=== PATIENT | female | born 2005 | race African-American/Black ===

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

== ENCOUNTER 2023-12-22 09:57 | Emergency (ER) | payer OTHER ==
[~2023-12-22 09:57] MED LIST: ALBUAER3 IN
== END 2023-12-22 10:52 | disposition left against medical advice (07) ==
LOC: ER 09:57
DX: R10.9 Unspecified abdominal pain (principal); Z53.21 Procedure and treatment not carried out due to patient leaving prior to being seen by health care provider

== ENCOUNTER 2024-02-29 15:57 | Emergency (ER) | payer OTHER | END 2024-02-29 16:42 | disposition left against medical advice (07) | LOC: ER 15:57 | DX: R31.9 Hematuria, unspecified (principal); Z53.21 Procedure and treatment not carried out due to patient leaving prior to being seen by health care provider ==

== ENCOUNTER 2024-03-07 10:20 | Emergency (ER) | payer OTHER ==
[~2024-03-07] VITALS: Ht 175.3 cm; Wt 55.1 kg
[2024-03-07 11:42] LABS: Urine Bacteria FEW /hpf (None Seen); Urine Blood Negative /uL (Negative); Urine Clarity Turbid (Clear); Urine Color Yellow (Yellow); Urine Mucus FEW (None Seen); Urine Protein, UAD TRACE (Negative); Urine Specific Gravity 1.027 (1.001-1.035); Urine Urobilinogen Normal (Negative); Urine WBC 58 /hpf (0 - 5); Urine pH 6.5 (5.0-9.0)
--- NOTE | 2024-03-07 11:45 | ED.PDOC ---
General HPI Comments A 18 year old female presents to the ED with a chief complaint of dysuria onset 2 weeks. Patient states she has been experiencing painful urination with a burning sensation as well as increased frequency and headache for the past 2 days. She has a past medical history of anemia and denies chest pain, shortness of breath, cough, congestion, dizziness, nausea, vomiting, diarrhea, fever. No other symptoms or modifying factors present at this time. Chief Complaint: Urinary Time Seen by MD: 11:09 Primary Care Provider: [employer] Reviewed notes: Medications, Allergies Allergies: Coded Allergies: NO KNOWN ALLERGIES (Unverified , 08/28/22) Home Meds Active Scripts Albuterol Sulfate (VENTOLIN MDI) 90 Mcg Ih, 90 MCG IN Q6HP PRN for 7 Days, #1 MCG Prov:LANEY SESAY MD 06/21/23 Albuterol Sulfate (VENTOLIN MDI) 90 Mcg Ih, 90 MCG IN Q6HP PRN for 10 Days, #1 MCG Prov:LANEY SESAY MD 06/21/23 Information Source: Patient Mode of Arrival: Ambulatory Severity: Moderate Timing: Weeks Duration: Intermittent Prehospital treatment: None Symptoms: Dysuria, Frequency History of: None Modifying factors: None associated signs and symptoms: Dysuria, Frequency, None (headache) Past Medical History PAST MEDICAL HISTORY: Anemia Surgical History: Denies all surgeries RESIDENCY DIRECTOR History: Denies all RESIDENCY DIRECTOR Hx Family History Family History: Reviewed,noncontributory to illness Social History Smoker: Non-Smoker Alcohol: Denies ETOH Use Drugs: Denies Drug Use Lives In: Home Constitutional: denies: chills, diaphoresis, fatigue, fever, malaise, sweats, weakness, others EENTM: denies: blurred vision, double vision, ear bleeding, ear discharge, ear drainage, ear pain, ear ringing, eye pain, eye redness, hearing loss, mouth pain, mouth swelling, nasal discharge, nose bleeding, nose congestion, nose pain, photophobia, tearing, throat pain, throat swelling, voice changes, others Respiratory: denies: cough, hemoptysis, orthopnea, SOB at rest, shortness of breath, SOB with excertion, stridor, wheezing, others Cardiovascular: denies: chest pain, dizzy spells, diaphoresis, Dyspnea on exertion, edema, irregular heart beat, left arm pain, lightheadedness, palpitations, PND, syncope, others Gastrointestinal: denies: abdomen distended, abdominal pain, blood streaked bowels, constipated, diarrhea, dysphagia, difficulty swallowing, hematemesis, melena, nausea, poor appetite, poor fluid intake, rectal bleeding, rectal pain, vomiting, others Genitourinary: reports: burning, dysuria, frequency; denies: abnormal vagina bleeding, dyspareunia, flank pain, hematuria, incontinence, pain, , vagina discharge, urgency, others Neurological: reports: headache; denies: dizziness, fainting, left sided numbness, left sided weakness, numbness, paresthesia, pre-existing deficit, right sided numbness, right sided weakness, seizure, speech problems, tingling, tremors, weakness, others Musculoskeletal: denies: back pain, gout, joint pain, joint swelling, muscle pain, muscle stiffness, neck pain, others Integumetry: denies: bruises, change in color, change in hair/nails, dryness, laceration, lesions, lumps, rash, wounds, others Allergic/Immunocompromised: denies: Difficulty Healing, Frequent Infections, Hives, Itching, others Hematologic/Lymphatic: denies: anemia, blood clots, easy bleeding, easy bruising, swollen glands, others Endocrine: denies: excessive hunger, excessive sweating, excessive thirst, excessive urination, flushing, intolerance to cold, intolerance to heat, unexplained weight gain, unexplained weight loss, others Psychiatric: denies: anxiety, bipolar disorder, depression, hopeless, panic d isorder, schizophrenia, sleepless, suicidal, others All Other Systems: Reviewed and Negative Physical Exam General Appearance: No Apparent Distress, Normal HEENT: Normal ENT Inspection, Pharynx Normal, TMs Normal Neck: Full Range of Motion, Non-Tender, Normal, Normal Inspection Respiratory: Chest Non-Tender, Lungs Clear, No Accessory Muscle Use, No Respiratory Distress, Normal Breath Sounds Cardiovascular: No Edema, No JVD, No Murmur, No Gallop, Normal Peripheral Pulses, Regular Rate/Rhythm Breast Exam: Deferred Gastrointestinal: No Organomegaly, Non Tender, No Pulsatile Mass, Normal Bowel Sounds, Soft Genitalia: Deferred Pelvic: Deferred Rectal: Deferred Extremities: No calf tenderness, Normal capillary refill, Normal inspection, Normal range of motion, Non-tender, No pedal edema Musculoskeletal : Apperance: Normal Neurologic: Alert, bricklayer helper II-XII nml as Tested, No Motor Deficits, Normal Affect, Normal Mood, No Sensory Deficits Cerebellar Function: Normal Reflexes: Normal Skin: Dry, Normal Color, Warm Lymphatic: No Adenopathy Was a procedure done? Was a procedure done?: No Differential Diagnosis Kidney stone (Female): N/A Kidney stone (Male): N/A Penile/Scrotal: N/A Urinary Problem (Male): N/A Urinary Problem (Female): Pyelonephritis, Urolithiasis, UTI X-Ray, Labs, Meds, VS Vital Signs Date Time Temp Pulse Resp B/P (MAP) Pulse Ox O2 Delivery O2 Flow Rate FiO2 03/07/24 12:01 85 18 100 Room Air 03/07/24 12:01 97.6 85 18 114/70 (85) 100 97.6 03/07/24 12:00 97.6 85 18 114/70 (85) 100 97.6 03/07/24 11:15 99.5 92 16 103/80 (88) 100 Lab Test 03/07/24 11:36 03/07/24 11:17 Range/Units White Blood Count 4.7 4.4-10.8 10^3/uL Red Blood Count 5.01 4.0-5.20 10^6/uL Hemoglobin 13.0 12.2-16.2 g/dL Hematocrit 40.9 36.0-46.0 % Mean Corpuscular Volume 81.6 80.0-100.0 fL Mean Corpuscular Hemoglobin 26.0 L 28.0-32.0 pg Mean Corpuscular Hemoglobin Concent 31.9 L 32.0-36.0 g/dL Red Cell Distribution Width 17.8 H 11.8-14.3 % Platelet Count 180 140-450 10^3/uL Mean Platelet Volume 9.1 6.9-10.8 fL Neutrophils (%) (Auto) 63.4 37.0-80.0 % Lymphocytes (%) (Auto) 29.7 10.0-50.0 % Monocytes (%) (Auto) 5.5 0.0-12.0 % Eosinophils (%) (Auto) 0.9 0.0-7.0 % Basophils (%) (Auto) 0.5 0.0-2.0 % Neutrophils # (Auto) 3.0 1.6-8.6 10 ^3/uL Lymphocytes # (Auto) 1.4 0.4-5.4 10 ^3/uL Monocytes # (Auto) 0.3 0-1.3 10 ^3/uL Eosinophils # (Auto) 0 0-0.8 10 ^3/uL Basophils # (Auto) 0 0-0.2 10 ^3/uL Nucleated Red Blood Cells 0.3 % Sodium Level 139 136-145 mmol/L Potassium Level 3.4 L 3.5-5.1 mmol/L Chloride Level 105 98-107 mmol/L Carbon Dioxide Level 26 20-31 mmol/L Anion Gap 8 5-15 Blood Urea Nitrogen 10 9-23 mg/dL Creatinine 0.81 0.550-1.02 mg/dL Glomerular Filtration Rate Calc 107 >90 mL/min BUN/Creatinine Ratio 12.3 10.0-20.0 Serum Glucose 113 H 74-106 mg/dL Calcium Level 10.6 H 8.7-10.4 mg/dL Urine Color Yellow Yellow Urine Clarity Turbid H Clear Urine pH 6.5 5.0-9.0 Urine Specific [place] 1.027 1.001-1.035 Urine Protein Trace H Negative Urine Ketones Negative Negative Urine Blood Negative Negative /uL Urine Nitrite Negative Negative Urine Bilirubin Negative Negative Urine Urobilinogen Normal Negative mg/dL Urine Leukocyte Esterase 2+ Negative /uL Urine RBC 11 0 - 4 /hpf Urine WBC 58 0 - 5 /hpf Urine Squamous Epithelial Cells Few <5 /hpf Urine Bacteria Few H None Seen /hpf Urine Mucus Few None Seen Urine Glucose Normal Normal mg/dL Urine Test Negative Negative Current Medications Medications (Trade) Dose Ordered Sig/Kendy Route Start Time Stop Time Status Last Admin Ceftriaxone Sodium (Rocephin) 1,000 mg ONCE ONCE IM 03/07/24 12:15 03/07/24 12:16 DC 03/07/24 12:20 Lidocaine HCl (Xylocaine 1%) 2.1 ml ONCE ONCE IJ 03/07/24 12:30 03/07/24 12:31 DC 03/07/24 12:20 Time of 1ST Reevaluation: 11:39 Reevaluation 1ST: Unchanged Patient Education/Counseling: Diagnosis, Treatment, Prognosis Family Education/Counseling: No Family Present Additional Information The following tests were ordered, and results were reviewed by me: BMP, CBC, UA, PREGUA I discussed treatment and results with medical personnel and patient Departure 1 Departure Time of Disposition: 13:20 (Patient likely has pyelonephritis. We will discharge patient home with outpatient follow up) Impression: Primary Impression: Acute pyelonephritis Disposition: HOME / SELF CARE / HOMELESS Condition: Stable Additional Instructions: You have a urinary tract infection. You were prescribed antibiotics. Please take as directed. You can take Tylenol Motrin as needed for pain. It is important that he follow up with the regular doctor within 1 week to ensure you are doing better. If your symptoms worsen or you have any other concerns then please return to the emergency room. e-Prescriptions Cefdinir (Cefdinir) 300 Mg Cap 1 CAP PO BID for 7 Days, #14 CAP Prov: NANI TEAGUE MD 03/07/24 Discharged With: Self Critical Care Note Critical Care Time?: No Stability Stability form required: No I personally scribed for NANI TEAGUE MD ([email or web address]) on 03/07/24 at 11:45. Electronically submitted by Camelia Grossman ([email or web address]). I personally scribed for NANI TEAGUE MD ([email or web address]) on 03/07/24 at 11:52. Electronically submitted by Camelia Grossman ([email or web address]). I personally scribed for NANI TEAGUE MD ([email or web address]) on 03/07/24 at 11:52. Electronically submitted by Camelia Grossman ([email or web address]). NANI TEAGUE MD Mar 07, 2024 11:45
[2024-03-07 12:00] LABS: Basophils # (auto) 0 10 ^3/uL (0-0.2); Basophils % (auto) 0.5 % (0.0-2.0); Eosinophils # (auto) 0 10 ^3/uL (0-0.8); Eosinophils % (auto) 0.9 % (0.0-7.0); Hematocrit 40.9 % (36.0-46.0); Lymphocytes # (auto) 1.4 10 ^3/uL (0.4-5.4); Lymphocytes % (auto) 29.7 % (10.0-50.0); Mean Corpuscular Hgb Conc. 31.9 g/dL (32.0-36.0); Mean Corpuscular Volume 81.6 fL (80.0-100.0); Monocytes # (auto) 0.3 10 ^3/uL (0-1.3); Monocytes % (auto) 5.5 % (0.0-12.0); Neutrophils % (auto) 63.4 % (37.0-80.0); Nucleated Red Blood Cells % 0.3 %; Platelet Count (auto) 180 10^3/uL (140-450); Red Blood Cells 5.01 10^6/uL (4.0-5.20); Red Cell Distribution Width 17.8 % (11.8-14.3); White Blood Cell 4.7 10^3/uL (4.4-10.8)
[2024-03-07 12:01] VITALS: BP 114/70; PULSE 85; RESP 18; TEMP 97.6; O2SAT 100
[2024-03-07 12:09] LABS: Chloride 105 mmol/L (98-107); Sodium 139 mmol/L (136-145)
[2024-03-07 12:10] LABS: Anion Gap 8 (5-15); Carbon Dioxide 26 mmol/L (20-31)
[2024-03-07] MEDS ORDERED: cefTRIAXone W LIDOCAINE 1 GM IM IM ONE (12:15)
[2024-03-07 12:16] LABS: BUN/Creatinine Ratio 12.3 (10.0-20.0); Blood Urea Nitrogen 10 mg/dL (9-23)
[2024-03-07] MEDS: LIDOCAINE 1% HCL (LOCAL ANESTH.) INJ 20ML MDV IJ ONE (12:20)
[2024-03-07] MEDS: cefTRIAXone SOD 1,000 MG VL IM ONE (12:20)
[2024-03-07 12:21] LABS: Calcium 10.6 mg/dL (8.7-10.4); Glucose 113 mg/dL (74-106); Potassium 3.4 mmol/L (3.5-5.1)
[2024-03-07] MEDS ORDERED: CEFD300C2 PO (13:21)
== END 2024-03-07 13:24 | disposition home or self-care (01) ==
LOC: ER 10:20
DX: N10 Acute pyelonephritis (principal); R51.9 Headache, unspecified; Z32.02 Encounter for pregnancy test, result negative
CPT/HCPCS: 36415; 80048; 81001; 81025; 85025; 96372; 99283; J0696; J2003

== ENCOUNTER 2024-05-09 19:04 | Inpatient (IN) | payer OTHER ==
[~2024-05-09] VITALS: Ht 175.3 cm; Wt 69.2 kg
[~2024-05-09 19:04] MED LIST changes: +CEFD300C2 PO
--- NOTE | 2024-05-09 19:51 | ED.PDOC ---
SOB-HPI HPI Comments HPI: Poor Historian. HPI: 18 year old female presents to the ED with chief complaint of flu-like illness. Patient reports that she has been experiencing symptoms of cough, nasal congestion, body aches, fever, chills, headache, sharp suprapubic pain, and migraines for the past week along with noted vaginal bleeding episode after coughing hard today. Patient relays that she has history of migraines. Patient denies any sick contacts at home. Patient denies any N/V/D, dizziness, chest pain, dysuria, or hemoptysis. Initial Vital Signs: Temp : 101.2F BP: 133/86 HR: 110 RR: 20 SpO2: 95% Past Medical History: Migraines, Pyelonephritis Past Surgical History: Denies Social History: Denies smoking, ETOH, or drug use. Medications: No medications. Allergies: NKDA REVIEW OF SYSTEMS: CONSTITUTIONAL: Denies acute: diaphoresis, HEAD: Denies acute: headache, photophobia Eyes: Denies acute: Double vision, vision loss, eye pain, eye discharge. EARS: Denies acute: tinnitus, hearing loss, ear discharge, ear pain, THROAT: Denies acute: sore throat, swelling, difficulty swallowing , pain with swallowing, change in voice. NECK: Denies acute: neck pain, neck swelling, stiff neck. HEART: Denies acute : chest pain, palpitations, LUNGS: Denies acute: SOB, wheezing, hemoptysis ABDOMEN: Denies acute: abdominal pain, Nausea, Vomiting, diarrhea, melena , hematemesis, hematochezia SKIN: Denies acute: rash, redness, lesions, itchiness. EXTREMITIES: Denies acute: calf pain, numbness, tingling, weakness, denies pain in extremity. Denies acute: Low back pain. Neuro: Denies acute: focal neurological deficit, motor or sensory focal neurological deficit, tremors, seizure like activity, confusion, dizziness, change in mental status, loss of bowel or bladder function, cauda equina like symptoms. : Denies acute: dysuria, hematuria, flank pain, increase in urinary frequency. PSYCH: Denies acute: hallucination, suicidal ideation, homicidal ideation. FEMALE: Denies acute: foul odor, unusual discharge. PHYSICAL EXAM: General: Lcvo-dy-ldpiwtua acute distress, awake and alert. Head: normocephalic, atraumatic. Neck: supple, trachea is midline, no swelling. Throat: Normal phonation. Eyes:, no erythema, no purulent discharge, no proptosis, no icterus. Heart: regular tachycardia in the setting of fever, no significant murmur appreciated. Lungs: no apparent respiratory distress, Able to speak in full sentences. No wheezing, no rhonchi, no crackles. No stridors Clear to auscultation bilaterally. Abdomen: Nonspecific lower pelvic tender to palpation, non distended, soft, no guarding, no rebound, + bowel sounds. Neuro: Awake, Alert, oriented to name, self, situation, follows commands GCS=15. Speech is normal. Skin: no petechia, no purpura, no cyanosis, non-pale, not jaundice. Lower extremities: --no - Pitting edema no deformity, no focal swelling, no calf TTP. Makes eye contact. moves all four extremities. Face: no apparent facial droop. Ambulating in the ED independently. No nuchal rigidity, Kernig's sign, Brudzinski's sign, no meningeal signs. ED COURSE: Time Seen by MD: 19:48 Primary Care Provider: [employer] Reviewed notes: Medications, Allergies Information Source: Patient Mode of Arrival: Ambulatory Was a procedure done? Was a procedure done?: No Differential Dx Differential Diagnosis: Asthma, Bronchitis, Cardiogenic Shock, COPD, Panic Attack, Pneumonia, Pneumothorax, Pulmonary Embolism, Respiratory Distress, Sinusitis, Allergic Rhinitis, Pharyngitis, URI X-Ray, Labs, Meds, VS Vital Signs Date Time Temp Pulse Resp B/P (MAP) Pulse Ox O2 Delivery O2 Flow Rate FiO2 05/09/24 21:56 102.0 05/09/24 21:30 98.0 107 18 116/80 (92) 96 98.0 05/09/24 19:56 101.2 110 20 133/86 (102) 95 Lab Test 05/09/24 19:57 05/09/24 19:52 Range/Units White Blood Count 2.9 L 4.4-10.8 10^3/uL Red Blood Count 4.77 4.0-5.20 10^6/uL Hemoglobin 12.0 L 12.2-16.2 g/dL Hematocrit 37.3 36.0-46.0 % Mean Corpuscular Volume 78.2 L 80.0-100.0 fL Mean Corpuscular Hemoglobin 25.2 L 28.0-32.0 pg Mean Corpuscular Hemoglobin Concent 32.2 32.0-36.0 g/dL Red Cell Distribution Width 15.6 H 11.8-14.3 % Platelet Count 111 L 140-450 10^3/uL Mean Platelet Volume 9.1 6.9-10.8 fL Neutrophils (%) (Auto) 49.3 37.0-80.0 % Lymphocytes (%) (Auto) 35.3 10.0-50.0 % Monocytes (%) (Auto) 14.9 H 0.0-12.0 % Eosinophils (%) (Auto) 0.0 0.0-7.0 % Basophils (%) (Auto) 0.5 0.0-2.0 % Neutrophils # (Auto) 1.4 L 1.6-8.6 10 ^3/uL Lymphocytes # (Auto) 1.0 0.4-5.4 10 ^3/uL Monocytes # (Auto) 0.4 0-1.3 10 ^3/uL Eosinophils # (Auto) 0 0-0.8 10 ^3/uL Basophils # (Auto) 0 0-0.2 10 ^3/uL Nucleated Red Blood Cells 0.1 % Sodium Level 135 L 136-145 mmol/L Potassium Level 2.9 L 3.5-5.1 mmol/L Chloride Level 98 98-107 mmol/L Carbon Dioxide Level 27 20-31 mmol/L Anion Gap 10 5-15 Blood Urea Nitrogen 8 L 9-23 mg/dL Creatinine 0.68 0.550-1.02 mg/dL Glomerular Filtration Rate Calc 128 >90 mL/min BUN/Creatinine Ratio 11.8 10.0-20.0 Serum Glucose 108 H 74-106 mg/dL Lactic Acid Level 0.8 0.4-2.0 mmol/L Calcium Level 9.8 8.7-10.4 mg/dL Magnesium Level 1.9 1.6-2.6 mg/dL Total Bilirubin 0.4 0.2-1.0 mg/dL Aspartate Amino Transferase (AST) 19 13-40 U/L Alanine Aminotransferase (ALT) 10 7-40 U/L Alkaline Phosphatase 47 46-116 U/L Troponin I High Sensitivity < 3 L </=34 ng/L Total Protein 7.7 5.7-8.2 g/dL Albumin 4.8 3.2-4.8 g/dL Influenza Type A Antigen Negative Negative Influenza Type B Antigen Negative Negative SARS-CoV-2 Antigen (Rapid) Negative NEGATIVE Current Medications Medications (Trade) Dose Ordered Sig/Kendy Route Start Time Stop Time Status Last Admin Sodium Chloride 1,000 ml @ 1,000 mls/hr Q1H ONCE IV 05/09/24 20:00 05/09/24 20:59 DC 05/09/24 21:54 Potassium Chloride (Klor-Con Tablet) 40 meq ONCE ONCE PO 05/09/24 21:00 05/09/24 21:09 DC 05/09/24 21:56 Acetaminophen (Tylenol Tablet) 1,000 mg ONCE ONCE PO 05/09/24 21:30 05/09/24 21:31 DC 05/09/24 21:56 [place] [id number] Ph: [phone] DIAGNOSTIC IMAGING Diagnostic Imaging Report : [id number] Signed PATIENT: ANN MCCLUREACCT: [id number] UNIT: [id number] : 2005 LOC: ER ROOM / BED: / AGE / SEX: 18 / F ADM STATUS: REG ER SERVICE 28 ORDERING PHYSICIAN: SAMMY CULVER DO PROCEDURE(s): PELUS - PELVIC REASON: pelvic pain ORDER NUMBER(s): [id number], ACCESSION NUMBER(s): [id number] INDICATION: pelvic pain TECHNIQUE: Multiple real-time grayscale transabdominal sonographic images along with color and duplex Doppler of the uterus and ovaries were obtained. COMPARISON: None FINDINGS: Uterus measures approximately 6.6 X 4.5 X 4 cm with no abnormality demonstrated. Endometrium measures approximately 10 mm in thickness and demonstrates normal homogeneous echogenicity. Right ovary measures approximately 3.7 X 2.4 X 2.8 cm with normal Doppler color flow. Left ovary measures approximately 3.8 X 2.1 X 3 cm with normal Doppler color flow. Both ovaries demonstrate small normal appearing follicles. No evidence of pelvic mass. Small amount of nonspecific free fluid noted in the cul-de-sac and left adenexal region. IMPRESSION: Small amount of nonspecific free fluid noted in cul-de-sac and left adenexal region. Otherwise unremarkable study. ATED BY: DUNCAN ENAMORADO MD DICTATED DATE/TIME: 05/09/242209 SIGNED BY: DUNCAN ENAMORADO MD SIGNED DATE/TIME: 05/09/242209 CC: [place] [id number] Ph: [phone] DIAGNOSTIC IMAGING Diagnostic Imaging Report : [id number] Signed PATIENT: ANN MCCLUREACCT: [id number] UNIT: [id number] : 2005 LOC: ER ROOM / BED: / AGE / SEX: 18 / F ADM STATUS: REG ER SERVICE 47 ORDERING PHYSICIAN: SAMMY CULVER DO PROCEDURE(s): CXRP - CHEST PORTABLE REASON: fever/cough/sob/bodyaches ORDER NUMBER(s): [id number], ACCESSION NUMBER(s): [id number] CHEST RADIOGRAPH Indication: fever/cough/sob/bodyaches Technique: Single frontal view of the chest was obtained COMPARISON: XY CHEST PORTABLE on DOS: 06/20/23 FINDINGS: Lines and Tubes: None Lungs: Clear Pleura: No effusion. No pneumothorax. Cardiomediastinal contours: Unremarkable Bones: Unremarkable IMPRESSION: No abnormality. ATED BY: DUNCAN ENAMORADO MD DICTATED DATE/TIME: 05/09/242120 SIGNED BY: DUNCAN ENAMORADO MD SIGNED DATE/TIME: 05/09/242120 CC: Time of 1ST Reevaluation: 20:48 Reevaluation 1ST: Unchanged Patient Education/Counseling: Diagnosis, Treatment Family Education/Counseling: No Family Present Comments Patient presented with the above HPI.---flu-like symptoms and fever---workup was initiated. patient was found with the above mentioned diagnosis. the following medications were ordered: please refer to order lists of meds and tests obtained by myself Dr. Culver. Patient ED course and VS have been stabilized. Patient has been reassessed in the ED and remained in a stable condition. Pertinent incidental findings were discussed with the patient and/or family. Patient/family voices understanding and is agreeable with plan. Patient has been observed in the ED adequate length of time to insure improvement/stability. Escalation of care considered: Consideration of escalation to observation or admission Patient has fever unknown etiology. Patient was ADMITTED to the medicine team for further evaluation and treatment of their presentation. All the reports of any imaging studies that were ordered by myself were reviewed by myself. Departure 1 Departure Time of Disposition: 21:21 Impression: Primary Impression: Flu-like symptoms Additional Impressions: Thrombocytopenia Fever of unknown origin Disposition: ADMITTED INPATIENT Admit to: [facility] Condition: Guarded Discharged With: Self Critical Care Note Critical Care Time?: No I personally scribed for SAMMY CULVER DO ([email or web address]) on 05/09/24 at 19:51. Electronically submitted by Rao Navarro ([email or web address]). I personally scribed for SAMMY CULVER DO ([email or web address]) on 05/09/24 at 20:21. Electronically submitted by Rao Navarro ([email or web address]). I personally scribed for SAMMY CULVER DO ([email or web address]) on 05/09/24 at 21:17. Electronically submitted by Rao Navarro ([email or web address]). SAMMY CULVER DO May 09, 2024 19:51
[2024-05-09 20:06] LABS: Basophils # (auto) 0 10 ^3/uL (0-0.2); Eosinophils # (auto) 0 10 ^3/uL (0-0.8); Hematocrit 37.3 % (36.0-46.0); Mean Corpuscular Hemoglobin 25.2 pg (28.0-32.0); Monocytes # (auto) 0.4 10 ^3/uL (0-1.3); Neutrophils # (auto) 1.4 10 ^3/uL (1.6-8.6); Platelet Count (auto) 111 10^3/uL (140-450)
[2024-05-09 20:08] LABS: Basophils % (auto) 0.5 % (0.0-2.0); Lymphocytes % (auto) 35.3 % (10.0-50.0); Mean Corpuscular Hgb Conc. 32.2 g/dL (32.0-36.0); Mean Corpuscular Volume 78.2 fL (80.0-100.0); Monocytes % (auto) 14.9 % (0.0-12.0); Neutrophils % (auto) 49.3 % (37.0-80.0); Nucleated Red Blood Cells % 0.1 %; Red Blood Cells 4.77 10^6/uL (4.0-5.20); Red Cell Distribution Width 15.6 % (11.8-14.3); White Blood Cell 2.9 10^3/uL (4.4-10.8)
[2024-05-09 20:25] LABS: Alanine Aminotransferase 10 U/L (7-40); Alkaline Phosphatase 47 U/L (46-116); Anion Gap 10 (5-15); Aspartate Aminotransferase 19 U/L (13-40); BUN/Creatinine Ratio 11.8 (10.0-20.0); Calcium 9.8 mg/dL (8.7-10.4); Carbon Dioxide 27 mmol/L (20-31); Magnesium 1.9 mg/dL (1.6-2.6)
[2024-05-09 20:26] LABS: Albumin 4.8 g/dL (3.2-4.8); Bilirubin, Total 0.4 mg/dL (0.2-1.0); Total Protein 7.7 g/dL (5.7-8.2)
[2024-05-09 20:27] LABS: Blood Urea Nitrogen 8 mg/dL (9-23); Chloride 98 mmol/L (98-107); Glucose 108 mg/dL (74-106); Potassium 2.9 mmol/L (3.5-5.1); Sodium 135 mmol/L (136-145)
[2024-05-09 20:33] LABS: COVID19 ANTIGEN SOFIA FIA NEGATIVE (NEGATIVE); Rapid Influenza A Negative (Negative); Rapid Influenza B Negative (Negative)
--- NOTE | 2024-05-09 21:24 | DVH ---
CHEST RADIOGRAPH Indication: fever/cough/sob/bodyaches Technique: Single frontal view of the chest was obtained COMPARISON: XY CHEST PORTABLE on DOS: 06/20/23 FINDINGS: Lines and Tubes: None Lungs: Clear Pleura: No effusion. No pneumothorax. Cardiomediastinal contours: Unremarkable Bones: Unremarkable IMPRESSION: No abnormality.
[2024-05-09] MEDS: SODIUM CHLORIDE 0.9% 1,000 ML IV ONE (21:54)
[2024-05-09] MEDS: POTASSIUM CHL 20 Meq TABLET PO ONE (21:56)
[2024-05-09] MEDS: ACETAMINOPHEN 325 MG TAB PO ONE (21:56)
--- NOTE | 2024-05-09 22:13 | DVH ---
INDICATION: pelvic pain TECHNIQUE: Multiple real-time grayscale transabdominal sonographic images along with color and duplex Doppler of the uterus and ovaries were obtained. COMPARISON: None FINDINGS: Uterus measures approximately 6.6 X 4.5 X 4 cm with no abnormality demonstrated. Endometrium measures approximately 10 mm in thickness and demonstrates normal homogeneous echogenicity. Right ovary measures approximately 3.7 X 2.4 X 2.8 cm with normal Doppler color flow. Left ovary lashaun ures approximately 3.8 X 2.1 X 3 cm with normal Doppler color flow. Both ovaries demonstrate small no rmal appearing follicles. No evidence of pelvic mass. Small amount of nonspecific free fluid noted in the cul-de-sac and left a denexal region. IMPRESSION: Small amount of nonspecific free fluid noted in cul-de-sac and left adenexal region. Otherwise unrem arkable study.
[2024-05-09] MEDS: cefTRIAXone 1GM/50ML D5W 50 ML IV ONE (22:57)
[2024-05-09 22:58] LABS: Urine Bacteria FEW /hpf (None Seen); Urine Blood 3+ /uL (Negative); Urine Clarity Clear (Clear); Urine Color Yellow (Yellow); Urine Mucus FEW (None Seen); Urine Protein, UAD 1+ (Negative); Urine Specific Gravity 1.022 (1.001-1.035); Urine Squamous Epithelial Cell FEW /hpf (<5); Urine Urobilinogen Normal (Negative); Urine WBC 3 /HPF (0-5)
[2024-05-10] VITALS (9 sets, daily range): BP systolic 90–111; BP diastolic 57–79; PULSE 78–97; RESP 12–20; TEMP 97.7–98.4; O2SAT 93–99
[2024-05-10] MEDS ORDERED: ONDANSETRON HCL 4 MG/2 ML VIAL IV PRN
[2024-05-10] MEDS ORDERED: ACETAMINOPHEN 325 MG TAB PO PRN
[2024-05-10] MEDS: SODIUM CHLORIDE 0.9% 1,000 ML IV SCH
[2024-05-10] MEDS ORDERED: DOCUSATE SOD 100 MG CAP PO PRN
[2024-05-10] MEDS ORDERED: NITROGLYCERIN 0.4 MG SL TAB SL PRN (03:15)
[2024-05-10] MEDS ORDERED: MORPHINE SULFATE INJ 2 MG/ml SYRG IV PRN (03:15)
--- NOTE | 2024-05-10 03:16 | DVHHP2 ---
History of Present Illness Reason for Visit: Fever of unknown origin History of Present Illness The patient is a 18-year-old female with past medical history of migraine headache and pyelonephritis who presented to [facility] ED with complaint of flu-like symptoms. Patient reports symptoms progressively get worse with cough, nasal congestion, body aches, migraine headache, sharp suprapubic pain, fever, chills, getting worse that prompted this visit. Patient was seen evaluated in the ED, laboratory data shows WBC 2.9, platelets 111, sodium 135, potassium 2.9, BUN 8, creatinine 0.68, GFR 128, glucose 108, troponin < 3. Chest x-ray showed no acute disease. Patient was started on IV antibiotic regimen Rocephin, please see medication orders section in the computer. On my assessment, patient denied chest pain, no headache, no dizziness, no diaphoresis, no shortness a breath, no nausea, no vomiting, no chills. Patient was admitted for further evaluation and medical management. Past Medical History Migraines, Pyelonephritis Past Surgical History Denies all surgeries Family History Reviewed, noncontributory to the management of this case. Past Social History The patient lives at home, denies smoking, alcohol or illicit drugs abuse. Review of Systems Constitutional: Yes: Fever, Chills; No: Sweats, Weakness, Malaise, Other Eyes: No: Pain, Vision change, Conjunctivae inflammation, Eyelid inflammation, Other, Redness ENT: No: Ear pain, Ear discharge, Nose pain, Nose discharge, Nose congestion, Mouth pain, Mouth swelling, Throat pain, Throat swelling, Other Respiratory: No: Cough, Dry, Shortness of breath, SOB with excertion, Wheezing, Hemoptysis, Pleuritic Pain, Sputum, Wheezing, Other Cardiovascular: No: Chest Pain, Palpitations, Orthopnea, Paroxysmal Noc. Dyspnea, Edema, Lt Headedness, Other Gastrointestinal: No: Nausea, Vomiting, Abdominal Pain, Diarrhea, Constipation, Melena, Hematochezia, Other Genitourinary: No Dysuria, No Frequency, No Incontinence, No Hematuria, No Retention; Other (Pelvic pain) Musculoskeletal: No: other, neck pain, shoulder pain, arm pain, back pain, hand pain, leg pain, foot pain Skin: No: Rash, Lesions, Jaundice, Bruising, Other Neurological: Other (Headache); No: Weakness, Numbness, Incoordination, Change in speech, Confusion, Seizures Allergies: Coded Allergies: NO KNOWN ALLERGIES (Unverified , 08/28/22) Medications Current Medications Medications Dose Ordered Sig/Kendy Route Start Time Stop Time Status Last Admin Dose Admin Ceftriaxone Sodium 50 ml @ 100 mls/hr DAILY@09 IV 05/10/24 09:00 Sodium Chloride 1,000 ml @ 60 mls/hr [id number] IV 05/10/24 00:00 05/10/24 00:00 60 MLS/HR Acetaminophen/ Hydrocodone Bitart 1 tab Q4HP PRN PO 05/10/24 00:00 Ondansetron HCl 4 mg Q4HP PRN IV 05/10/24 00:00 Docusate Sodium 100 mg BIDPRN PRN PO 05/10/24 00:00 Acetaminophen 650 mg Q6HP PRN PO 05/10/24 00:00 Exam Vital Signs Vital Signs Date Time Temp Pulse Resp B/P (MAP) Pulse Ox O2 Delivery O2 Flow Rate FiO2 05/10/24 02:34 98 Room Air* 0 21 05/10/24 01:04 99 20 05/09/24 22:58 97.0 05/09/24 21:30 116/80 (92) General Appearance: Alert, Oriented X3, Cooperative, No acute distress HEENT: Atraumatic, PERRLA, EOMI, Mucous membr. moist/pink Respiratory: Clear to auscultation, Normal air movement Cardiovascular: Regular rate, Normal S1, Normal S2, No murmurs Abdominal: Normal bowel sounds, Soft, No tenderness, No hepatospenomegaly, No masses Extremities: No clubbing, No cyanosis, No edema, Normal pulses, No tenderness/swelling Skin: No rashes, No breakdown, No significant lesion Neuro: Normal speech, Normal tone, Sensation intact, Cranial nerves 3-12 NL, Reflexes 2+, Other (Generalized weakness) Psych/Mental Status: Mental status NL, Mood NL Labs/Xrays Labs Test 05/09/24 19:57 05/09/24 19:56 05/09/24 19:52 05/09/24 19:50 Range/Units White Blood Count 2.9 L 4.4-10.8 10^3/uL Red Blood Count 4.77 4.0-5.20 10^6/uL Hemoglobin 12.0 L 12.2-16.2 g/dL Hematocrit 37.3 36.0-46.0 % Mean Corpuscular Volume 78.2 L 80.0-100.0 fL Mean Corpuscular Hemoglobin 25.2 L 28.0-32.0 pg Mean Corpuscular Hemoglobin Concent 32.2 32.0-36.0 g/dL Red Cell Distribution Width 15.6 H 11.8-14.3 % Platelet Count 111 L 140-450 10^3/uL Mean Platelet Volume 9.1 6.9-10.8 fL Neutrophils (%) (Auto) 49.3 37.0-80.0 % Lymphocytes (%) (Auto) 35.3 10.0-50.0 % Monocytes (%) (Auto) 14.9 H 0.0-12.0 % Eosinophils (%) (Auto) 0.0 0.0-7.0 % Basophils (%) (Auto) 0.5 0.0-2.0 % Neutrophils # (Auto) 1.4 L 1.6-8.6 10 ^3/uL Lymphocytes # (Auto) 1.0 0.4-5.4 10 ^3/uL Monocytes # (Auto) 0.4 0-1.3 10 ^3/uL Eosinophils # (Auto) 0 0-0.8 10 ^3/uL Basophils # (Auto) 0 0-0.2 10 ^3/uL Nucleated Red Blood Cells 0.1 % Sodium Level 135 L 136-145 mmol/L Potassium Level 2.9 L 3.5-5.1 mmol/L Chloride Level 98 98-107 mmol/L Carbon Dioxide Level 27 20-31 mmol/L Anion Gap 10 5-15 Blood Urea Nitrogen 8 L 9-23 mg/dL Creatinine 0.68 0.550-1.02 mg/dL Glomerular Filtration Rate Calc 128 >90 mL/min BUN/Creatinine Ratio 11.8 10.0-20.0 Serum Glucose 108 H 74-106 mg/dL Lactic Acid Level 0.8 0.4-2.0 mmol/L Calcium Level 9.8 8.7-10.4 mg/dL Magnesium Level 1.9 1.6-2.6 mg/dL Total Bilirubin 0.4 0.2-1.0 mg/dL Aspartate Amino Transferase (AST) 19 13-40 U/L Alanine Aminotransferase (ALT) 10 7-40 U/L Alkaline Phosphatase 47 46-116 U/L Troponin I High Sensitivity < 3 L </=34 ng/L Total Protein 7.7 5.7-8.2 g/dL Albumin 4.8 3.2-4.8 g/dL Monoscreen Negative Influenza Type A Antigen Negative Negative Influenza Type B Antigen Negative Negative SARS-CoV-2 Antigen (Rapid) Negative NEGATIVE Urine Color Yellow Yellow Urine Clarity Clear Clear Urine pH 6.0 5.0-9.0 Urine Specific [place] 1.022 1.001-1.035 Urine Protein 1+ H Negative Urine Ketones 3+ H Negative Urine Blood 3+ H Negative /uL Urine Nitrite Negative Negative Urine Bilirubin Negative Negative Urine Urobilinogen Normal Negative mg/dL Urine Leukocyte Esterase Negative Negative /uL Urine RBC 7 0 - 4 /hpf Urine Microscopic WBC 3 0-5 /HPF Urine Squamous Epithelial Cells Few <5 /hpf Urine Bacteria Few H None Seen /hpf Urine Mucus Few None Seen Urine Glucose Normal Normal mg/dL Urine Test Negative Negative PATIENT: ANN MCCLUREACCT: [id number] UNIT: [id number] : 2005 LOC: ER ROOM / BED: / AGE / SEX: 18 / F ADM STATUS: REG ER SERVICE 28 ORDERING PHYSICIAN: SAMMY CULVER DO PROCEDURE(s): PELUS - PELVIC REASON: pelvic pain ORDER NUMBER(s): [id number], ACCESSION NUMBER(s): [id number] INDICATION: pelvic pain TECHNIQUE: Multiple real-time grayscale transabdominal sonographic images along with color and duplex Doppler of the uterus and ovaries were obtained. COMPARISON: None FINDINGS: Uterus measures approximately 6.6 X 4.5 X 4 cm with no abnormality demonstrated. Endometrium measures approximately 10 mm in thickness and demonstrates normal homogeneous echogenicity. Right ovary measures approximately 3.7 X 2.4 X 2.8 cm with normal Doppler color flow. Left ovary measures approximately 3.8 X 2.1 X 3 cm with normal Doppler color flow. Both ovaries demonstrate small normal appearing follicles. No evidence of pelvic mass. Small amount of nonspecific free fluid noted in the cul-de-sac and left adenexal region. IMPRESSION: Small amount of nonspecific free fluid noted in cul-de-sac and left adenexal region. Otherwise unremarkable study. ORDERING PHYSICIAN: SAMMY CULVER DO PROCEDURE(s): CXRP - CHEST PORTABLE REASON: fever/cough/sob/bodyaches ORDER NUMBER(s): [id number], ACCESSION NUMBER(s): [id number] CHEST RADIOGRAPH Indication: fever/cough/sob/bodyaches Technique: Single frontal view of the chest was obtained COMPARISON: XY CHEST PORTABLE on DOS: 06/20/23 FINDINGS: Lines and Tubes: None Lungs: Clear Pleura: No effusion. No pneumothorax. Cardiomediastinal contours: Unremarkable Bones: Unremarkable IMPRESSION: No abnormality. Assessment/Plan Assessment/Plan Thrombocytopenia Hypokalemia Leukopenia Fever of unknown origin Plan 1. Admit to telemetry unit 2. Breathing treatment 3. Pain control management 4. IV antibiotic management 5. Management of fluids and electrolytes 6. Consultation for hospitalized 7. Diagnostic test chest x-ray 8. DVT prophylaxis-on aspirin 9. Repeat labs CBC, CMP in a.m. 10. Continue with current medical management 11. Treatment plan discussed with patient and RN. Patient verbalized understanding. Plan discussed with: Patient, Other (RN) My Orders Orders - CHIVO PRITCHARD DNP Procedure Category Date Status Time Ceftriaxone 1gm/50ml PHA 05/10/24 In Process D5w (Rocephin) 09:00 Allergies DONALDO 05/09/24 In Process 23:49 Code Status CODE 05/09/24 Transmitted 23:49 2 Gm Sodium Diet DIET 05/10/24 Transmitted Breakfast Sodium Chloride 0.9% PHA 05/10/24 In Process 00:00 Oxygen Per Hour RT 05/09/24 Transmitted 23:49 Hydrocodone-Acet PHA 05/10/24 In Process 5/325mg Tab ([place] 00:00 Ondansetron Hcl PHA 05/10/24 In Process (Zofran) 00:00 Docusate Sodium PHA 05/10/24 In Process Capsule (Colace 00:00 Complete Blood Count LAB 05/10/24 Logged 04:00 Comprehensive LAB 05/10/24 Logged Metabolic Panel 04:00 Condition: Serious DONALDO 05/09/24 In Process 23:49 Acetaminophen Tablet PHA 05/10/24 In Process (Tylenol Tablet) 00:00 Bedrest With Bathroom DONALDO 05/09/24 In Process Privileg 23:49 Sequential DONALDO 2/22/25 In Process Compression Device Admit ADMIT 05/10/24 Transmitted 03:14 Nitroglycerin [facility] 05/10/24 Transmitted Sublingual (Ntrostat 03:15 Morphine Sulfate [facility] 05/10/24 Transmitted Injection 03:15 Notify Of Changes [facility] 05/10/24 Transmitted From Base 03:14 Gas Station Attendant For [facility] 05/10/24 Transmitted 24 Hours 03:14 Emergency Dysrhythmia [facility] 05/10/24 Transmitted Protocol 03:14 Rhythm Strips Once [facility] 05/10/24 Transmitted Every Shift 03:14 Oxygen By Nasal RT 05/10/24 Transmitted Cannula 03:14 Problem List: (1) Thrombocytopenia (2) Hypokalemia (3) Leukopenia (4) Fever of unknown origin Date of Service: May 10, 2024 Billing Provider: CHIVO PRITCHARD DNP Common Visit Codes: [id number] INP/OBS CARE (HIGH) CHIVO PRITCHARD DNP May 10, 2024 03:16
[2024-05-10] MEDS: cefTRIAXone 1GM/50ML D5W 50 ML IV SCH (09:23)
[2024-05-10] MEDS ORDERED: FERR325T20 (10:51)
[2024-05-10 15:50] LABS: Anion Gap 9 (5-15); Carbon Dioxide 27 mmol/L (20-31); Chloride 103 mmol/L (98-107); Sodium 139 mmol/L (136-145)
[2024-05-10 15:51] LABS: Calcium 9.3 mg/dL (8.7-10.4)
[2024-05-10 15:56] LABS: BUN/Creatinine Ratio 10.2 (10.0-20.0); Glucose 93 mg/dL (74-106)
[2024-05-10 16:00] LABS: Blood Urea Nitrogen 6 mg/dL (9-23); Potassium 3.3 mmol/L (3.5-5.1)
[2024-05-10] MEDS: POTASSIUM EFFERVESENT TAB 25 MEQ PO ONE (18:25)
[2024-05-11] VITALS (8 sets, daily range): BP systolic 94–111; BP diastolic 51–66; PULSE 75–84; RESP 16–18; TEMP 97.3–98.5; O2SAT 97–99
[2024-05-11] MEDS: HYDROcodone-ACET 5/325MG TAB PO PRN (00:45)
--- NOTE | 2024-05-11 15:43 | DVH ---
EXAM: US RT UPPER DVT Clinical History: RIGHT UPPER ARM SWELLING Comparison: None Technique: Duplex Doppler evaluation of the deep venous systems of the right upper extremity including color D oppler and spectral/pulsed waveform analysis was performed. Findings: Normal compressibility and color Doppler flow is seen in the right upper extremity veins including th e internal jugular, subclavian, axillary, brachial, radial and ulnar veins. Impression: 1. No sonographic evidence for right upper extremity DVT.
--- NOTE | 2024-05-11 16:06 | DVHDS2 ---
Discharge Summary Date of Admission May 10, 2024 at 03:14 Date of Discharge: May 11, 2024 Labs/Diagnostic Data: Laboratory Results Test 05/10/24 18:59 05/10/24 15:15 05/09/24 19:57 05/09/24 19:56 POC Glucose 138 mg/dl (70-106) Sodium Level 139 mmol/L (136-145) Potassium Level 3.3 mmol/L (3.5-5.1) Chloride Level 103 mmol/L (98-107) Carbon Dioxide Level 27 mmol/L (20-31) Anion Gap 9 (5-15) Blood Urea Nitrogen 6 mg/dL (9-23) Creatinine 0.59 mg/dL (0.550-1.02) Glomerular Filtration Rate Calc 132 mL/min (>90) BUN/Creatinine Ratio 10.2 (10.0-20.0) Serum Glucose 93 mg/dL (74-106) Calcium Level 9.3 mg/dL (8.7-10.4) Magnesium Level 2.0 mg/dL (1.6-2.6) White Blood Count 2.9 10^3/uL (4.4-10.8) Red Blood Count 4.77 10^6/uL (4.0-5.20) Hemoglobin 12.0 g/dL (12.2-16.2) Hematocrit 37.3 % (36.0-46.0) Mean Corpuscular Volume 78.2 fL (80.0-100.0) Mean Corpuscular Hemoglobin 25.2 pg (28.0-32.0) Mean Corpuscular Hemoglobin Concent 32.2 g/dL (32.0-36.0) Red Cell Distribution Width 15.6 % (11.8-14.3) Platelet Count 111 10^3/uL (140-450) Mean Platelet Volume 9.1 fL (6.9-10.8) Neutrophils (%) (Auto) 49.3 % (37.0-80.0) Lymphocytes (%) (Auto) 35.3 % (10.0-50.0) Monocytes (%) (Auto) 14.9 % (0.0-12.0) Eosinophils (%) (Auto) 0.0 % (0.0-7.0) Basophils (%) (Auto) 0.5 % (0.0-2.0) Neutrophils # (Auto) 1.4 10 ^3/uL (1.6-8.6) Lymphocytes # (Auto) 1.0 10 ^3/uL (0.4-5.4) Monocytes # (Auto) 0.4 10 ^3/uL (0-1.3) Eosinophils # (Auto) 0 10 ^3/uL (0-0.8) Basophils # (Auto) 0 10 ^3/uL (0-0.2) Nucleated Red Blood Cells 0.1 % Lactic Acid Level 0.8 mmol/L (0.4-2.0) Total Bilirubin 0.4 mg/dL (0.2-1.0) Aspartate Amino Transferase (AST) 19 U/L (13-40) Alanine Aminotransferase (ALT) 10 U/L (7-40) Alkaline Phosphatase 47 U/L (46-116) Troponin I High Sensitivity < 3 ng/L (</=34) Total Protein 7.7 g/dL (5.7-8.2) Albumin 4.8 g/dL (3.2-4.8) Monoscreen Negative Test 05/09/24 19:52 05/09/24 19:50 Influenza Type A Antigen Negative (Negative) Influenza Type B Antigen Negative (Negative) SARS-CoV-2 Antigen (Rapid) Negative (NEGATIVE) Urine Color Yellow (Yellow) Urine Clarity Clear (Clear) Urine pH 6.0 (5.0-9.0) Urine Specific [place] 1.022 (1.001-1.035) Urine Protein 1+ (Negative) Urine Ketones 3+ (Negative) Urine Blood 3+ /uL (Negative) Urine Nitrite Negative (Negative) Urine Bilirubin Negative (Negative) Urine Urobilinogen Normal mg/dL (Negative) Urine Leukocyte Esterase Negative /uL (Negative) Urine RBC 7 /hpf (0 - 4) Urine Microscopic WBC 3 /HPF (0-5) Urine Squamous Epithelial Cells Few /hpf (<5) Urine Bacteria Few /hpf (None Seen) Urine Mucus Few (None Seen) Urine Glucose Normal mg/dL (Normal) Urine Test Negative (Negative) Other Laboratory Tests 05/10/24 15:15 05/09/24 19:57 Brief Hx & Hospital Course: 18-year-old female with a no significant past medical history presented to the hospital with flu-like symptoms including cough congestion fever and body aches. Patient was eventually admitted. I assume the care of the patient was from yesterday onwards. Patient was currently afebrile blood cultures are negative. Right upper extremity swelling, Doppler venous shows no evidence of DVT. Patient was diagnosed with a acute viral syndrome but influenza a and B are negative has been as COVID is negative. Patient was being discharged under stable condition. Patient was recommended to come back to ER if there is any recurrent fevers chills or any concern. Please follow up with the PCP with a repeat CBC BMP to make sure white count is within normal limits. Condition at Discharge: Stable Final Diagnosis/Problems List 1. Acute viral syndrome 2. Leukopenia Discharge Disposition: Home SNF Discharge Will this Physician continue t: No Discharge Instruct/Medications Diet: Regular Activity: No Restrictions, As Tolerated Follow Up/Referral: Follow up with the PCP with out patient was CBC BNP. Medications: As prescribed by ER physician Discharge Statement: "Patient was advised to return to the ER or call 911 if any headaches, dizziness, shortness of breath, chest pain, abdominal pain, bleeding, fevers, or worsening of medical condition. Patient was counseled about treatment plan, medications, possible side effects, patientverbalized understanding. All questions were answered to the best of my ability. This discharge took greater then 30 minutes in planning, reviewing documentation, counseling the patient, and discussing with other team members." ASSESSMENT ASSESSMENT Assessment 1. Acute viral syndrome 2. Leukopenia Date of Service: May 11, 2024 Billing Provider: NELIA SOW MD Common Visit Codes: 73778-JDP/OBS DISCH DAY >30min NELIA SOW MD May 11, 2024 16:06
== END 2024-05-11 18:36 | disposition home or self-care (01) | DRG 723 ==
LOC: ER 19:04 → OVERFLOW 05-10 03:14 → ER 05-10 03:19 → TELE-EAST 05-10 21:50
PROVIDERS: ADMIT Internal Medicine; ATTEND Internal Medicine
DX: B34.9 Viral infection, unspecified (principal); D69.6 Thrombocytopenia, unspecified; E87.6 Hypokalemia; Z20.822 Contact with and (suspected) exposure to COVID-19; D72.819 Decreased white blood cell count, unspecified; G43.909 Migraine, unspecified, not intractable, without status migrainosus; Z79.899 Other long term (current) drug therapy
CPT/HCPCS: 36415; 71045; 76830; 76856; 80048; 80053; 81001; 81025; 82962; 83605; 83735; 84484; 85025; 86308; 87040; 87426; 87804; 93971; G0378

== ENCOUNTER 2024-10-07 12:44 | Emergency (ER) | payer OTHER ==
[~2024-10-07] VITALS: Ht 170.2 cm; Wt 56.2 kg
[~2024-10-07 12:44] MED LIST changes: +FERR325T20
[2024-10-07 14:46] LABS: Urine Protein, UAD 1+ (Negative)
--- NOTE | 2024-10-07 14:47 | ED.PDOC ---
Eye-HPI HPI Comments A 19 year-old female presents to the ED with a chief complaint of throat pain with associated lymph node swelling/painful swallowing as of X1 week ago. Patient reports taking Ibuprofen with alleviating factors noted. Patient has no further complaints at this time and otherwise denies further associated symptoms of fever, chills, aches, blurred vision, cough, or phlegm. Chief Complaint: Sore Throat Time Seen by MD: 13:34 Primary Care Provider: [employer] Reviewed Notes: Nurses Notes, Medications, Allergies Allergies: Coded Allergies: NO KNOWN ALLERGIES (Unverified , 08/28/22) Home Meds Active Scripts Cefdinir (Cefdinir) 300 Mg Cap, 1 CAP PO BID for 7 Days, #14 CAP Prov:NANI TEAGUE MD 03/07/24 Albuterol Sulfate (VENTOLIN MDI) 90 Mcg Ih, 90 MCG IN Q6HP PRN for 7 Days, #1 MCG Prov:LANEY SESAY MD 06/21/23 Albuterol Sulfate (VENTOLIN MDI) 90 Mcg Ih, 90 MCG IN Q6HP PRN for 10 Days, #1 MCG Prov:LANEY SESAY MD 06/21/23 Reported Medications Ferrous Sulfate (Ferosul) 325 Mg Tab 05/10/24 Information Source: Patient Mode of Arrival: Ambulatory Timing: Weeks Duration: Since onset Quality: Pain Onset: Spontaneous Associated signs and symptoms: Sore Throat Past Medical History PAST MEDICAL HISTORY: Anemia Surgical History: Denies all surgeries 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 Family History Family History: Reviewed,noncontributory to illness Social History Smoker: Non-Smoker Alcohol: Denies ETOH Use Drugs: Denies Drug Use Lives In: Home Constitutional: denies: chills, diaphoresis, fatigue, fever, malaise, sweats, weakness, others EENTM: reports: throat pain, throat swelling, others (sore throat ); denies: blurred vision, double vision, ear bleeding, ear discharge, ear drainage, ear pain, ear ringing, eye pain, eye redness, hearing loss, mouth pain, mouth swelling, nasal discharge, nose bleeding, nose congestion, nose pain, photophobia, tearing, voice changes Respiratory: denies: cough, hemoptysis, orthopnea, SOB at rest, shortness of breath, SOB with excertion, stridor, wheezing, others Cardiovascular: denies: chest pain, dizzy spells, diaphoresis, Dyspnea on exertion, edema, irregular heart beat, left arm pain, lightheadedness, palpitations, PND, syncope, others Gastrointestinal: denies: abdomen distended, abdominal pain, blood streaked bowels, constipated, diarrhea, dysphagia, difficulty swallowing, hematemesis, melena, nausea, poor appetite, poor fluid intake, rectal bleeding, rectal pain, vomiting, others Genitourinary: denies: abnormal vagina bleeding, burning, dyspareunia, dysuria, flank pain, frequency, hematuria, incontinence, pain, , vagina discharge, urgency, others Neurological: denies: dizziness, fainting, headache, left sided numbness, left sided weakness, numbness, paresthesia, pre-existing deficit, right sided numbness, right sided weakness, seizure, speech problems, tingling, tremors, weakness, others Musculoskeletal: denies: back pain, gout, joint pain, joint swelling, muscle pain, muscle stiffness, neck pain, others Integumetry: denies: bruises, change in color, change in hair/nails, dryness, laceration, lesions, lumps, rash, wounds, others Allergic/Immunocompromised: denies: Difficulty Healing, Frequent Infections, Hives, Itching, others Hematologic/Lymphatic: denies: anemia, blood clots, easy bleeding, easy bruising, swollen glands, others Endocrine: denies: excessive hunger, excessive sweating, excessive thirst, excessive urination, flushing, intolerance to cold, intolerance to heat, unexplained weight gain, unexplained weight loss, others Psychiatric: denies: anxiety, bipolar disorder, depression, hopeless, panic disorder, schizophrenia, sleepless, suicidal, others All Other Systems: Reviewed and Negative Was a procedure done? Was a procedure done?: No EENT DIFF Sore Throat: Epiglottitis, Streptococcal, Viral Pharyngitis X-Ray, Labs, Meds, VS Vital Signs Date Time Temp Pulse Resp B/P (MAP) Pulse Ox O2 Delivery O2 Flow Rate FiO2 10/07/24 13:13 97.8 86 17 102/75 (84) 99 97.8 Lab Test 10/07/24 14:58 10/07/24 13:44 Range/Units Group A Streptococcus Rapid Negative Urine Color Yellow Yellow Urine Clarity Turbid H Clear Urine pH 5.5 5.0-9.0 Urine Specific [place] 1.038 H 1.001-1.035 Urine Protein 1+ H Negative Urine Ketones 1+ H Negative Urine Blood Negative Negative /uL Urine Nitrite Negative Negative Urine Bilirubin Negative Negative Urine Urobilinogen Normal Negative mg/dL Urine Leukocyte Esterase Negative Negative /uL Urine RBC 2 0 - 4 /hpf Urine Microscopic WBC 4 0-5 /HPF Urine Squamous Epithelial Cells Few <5 /hpf Urine Bacteria Few H None Seen /hpf Urine Mucus Few None Seen Urine Glucose Trace Normal mg/dL Urine Test Negative Negative X-Ray, Labs, Meds, VS Comment A 19 year-old female presents to the ED with a chief complaint of throat pain with associated lymph node swelling/painful swallowing as of X1 week ago. Patient arrives alert and oriented, ABC's intact, afebrile, vital signs stable, saturating well in room air CBC was ordered to exclude anemia, blood loss, or infection. BMP was ordered to exclude electrolyte abnormalities, renal failure, dehydration, hyperglycemia CMP was ordered to exclude electrolyte abnormalities, renal failure, dehydration, hyperglycemia and/or liver enzyme abnormalities. Urinalysis was ordered to rule out UTI or hematuria. Strep Test was ordered. Results displayed Neg. Labs in the ED were reassuring. Additional MDM Review of External, Non-ED records: External records reviewed. Discussion with independent historian (EMS, family) history obtained from the patient/parents (if applicable) at bedside Chronic conditions affecting care: None Social determinants of health affecting care: None Images Reviewed?: Images reviewed and evaluated by me Time of 1ST Reevaluation: 15:29 Reevaluation 1ST: Unchanged Patient Education/Counseling: Diagnosis, Treatment Family Education/Counseling: No Family Present Medical Screening: No EMC Exist At This Time SEPSIS Sepsis Screen Date sepsis recognized/suspect: Oct 07, 2024 Time Sepsis recognized/suspect: 1313 Recent Procedure: No On Antibiotic Therapy: No Respiratory Rate >20: No Heart Rate >90: No Temp<36 C (96.8 F) or >38.3 C: No SBP <90 or MAP <65 mmHG: No New Acute Mental Status Change: No Is the patient on CPAP, BIPAP,: No Vital Signs Date Time Temp Pulse Resp B/P (MAP) Pulse Ox O2 Delivery O2 Flow Rate FiO2 7/23/25 13:13 97.8 86 17 102/75 84 99 97.8 Departure 1 Departure Time of Disposition: 16:07 Impression: Primary Impression: Lymphadenitis Disposition: 01 HOME / SELF CARE / HOMELESS Condition: Stable e-Prescriptions Ibuprofen Micronized (Ibuprofen) 600 Mg Tab 600 MG PO TID for 10 Days, #30 TAB 0 Refills Prov: RENE MARADIAGA NP 10/07/24 Discharged With: Self Critical Care Note Critical Care Time?: No Stability Stability form required: No Heart Score Heart Score: Heart Score Response (Comments) Value History N/A 0 EKG N/A 0 Age N/A 0 Risk Factors N/A 0 Troponin N/A 0 Total 0 I personally scribed for RENE MARADIAGA [employer]TER ([email or web address]) on 10/07/24 at 14:47. Electronically submitted by Mary Morris ([email or web address]). I personally scribed for RENE MARADIAGA [employer] ([email or web address]) on 10/07/24 at 15:29. Electronically submitted by Mary Morris ([email or web address]). RENE MARADIAGA [employer] Oct 07, 2024 14:47
[2024-10-07 15:19] LABS: Rapid Strep A Screen-Throat Negative
[2024-10-07] MEDS ORDERED: IBUP1TAB5 PO (16:08)
[2024-10-07 16:19] VITALS: BP 93/57; PULSE 70; RESP 17; TEMP 98.8; O2SAT 97
== END 2024-10-07 16:31 | disposition home or self-care (01) ==
LOC: ER 12:44
DX: I88.9 Nonspecific lymphadenitis, unspecified (principal); Z86.2 Personal history of diseases of the blood and blood-forming organs and certain disorders involving the immune mechanism; Z79.899 Other long term (current) drug therapy
CPT/HCPCS: 81001; 81025; 87070; 87880

== ENCOUNTER 2025-01-18 13:13 | Emergency (ER) | payer OTHER ==
[~2025-01-18] VITALS: Ht 175.3 cm; Wt 56.3 kg
[~2025-01-18 13:13] MED LIST changes: +IBUP1TAB5 PO
--- NOTE | 2025-01-18 14:03 | ED.PDOC ---
General HPI Comments 19-year-old female who presents to the ED for chief complaint of urinary symptoms. The patient states that she has been having dysuria for the past 10 days. The patient states that she completed a course of antibiotics for a prior UTI one month prior. Patient's dates she has been having associated back pain but otherwise denies any other symptoms. Patient in the ED otherwise has stable vitals. Chief Complaint: Urinary Time Seen by MD: 14:01 Primary Care Provider: [employer] Reviewed notes: Medications, Allergies Allergies: Coded Allergies: NO KNOWN ALLERGIES (Unverified , 08/28/22) Home Meds Active Scripts Ibuprofen Micronized (Ibuprofen) 600 Mg Tab, 600 MG PO TID for 10 Days, #30 TAB 0 Refills Prov:RENE MARADIAGA [employer] 10/07/24 Cefdinir (Cefdinir) 300 Mg Cap, 1 CAP PO BID for 7 Days, #14 CAP Prov:NANI TEAGUE MD 03/07/24 Albuterol Sulfate (VENTOLIN MDI) 90 Mcg Ih, 90 MCG IN Q6HP PRN for 7 Days, #1 MCG Prov:LANEY SESAY MD 06/21/23 Albuterol Sulfate (VENTOLIN MDI) 90 Mcg Ih, 90 MCG IN Q6HP PRN for 10 Days, #1 MCG Prov:LANEY SESAY MD 06/21/23 Reported Medications Ferrous Sulfate (Ferosul) 325 Mg Tab 05/10/24 Information Source: Patient Mode of Arrival: Ambulatory Brought in by: Self Past Medical History PAST MEDICAL HISTORY: Anemia Surgical History: Denies all surgeries CYCLE REPAIRER History: Denies all CYCLE REPAIRER Hx Family History Family History: Reviewed,noncontributory to illness Social History Smoker: Non-Smoker Alcohol: Denies ETOH Use Drugs: Denies Drug Use Lives In: Home Constitutional: denies: chills, diaphoresis, fatigue, fever, malaise, sweats, weakness, others EENTM: denies: blurred vision, double vision, ear bleeding, ear discharge, ear drainage, ear pain, ear ringing, eye pain, eye redness, hearing loss, mouth pain, mouth swelling, nasal discharge, nose bleeding, nose congestion, nose pain, photophobia, tearing, throat pain, throat swelling, voice changes, others Respiratory: denies: cough, hemoptysis, orthopnea, SOB at rest, shortness of breath, SOB with excertion, stridor, wheezing, others Cardiovascular: denies: chest pain, dizzy spells, diaphoresis, Dyspnea on exertion, edema, irregular heart beat, left arm pain, lightheadedness, palpitations, PND, syncope, others Gastrointestinal: denies: abdomen distended, abdominal pain, blood streaked bowels, constipated, diarrhea, dysphagia, difficulty swallowing, hematemesis, melena, nausea, poor appetite, poor fluid intake, rectal bleeding, rectal pain, vomiting, others Genitourinary: reports: dysuria; denies: abnormal vagina bleeding, burning, dyspareunia, flank pain, frequency, hematuria, incontinence, pain, , vagina discharge, urgency, others Neurological: denies: dizziness, fainting, headache, left sided numbness, left sided weakness, numbness, paresthesia, pre-existing deficit, right sided numbness, right sided weakness, seizure, speech problems, tingling, tremors, weakness, others Musculoskeletal: denies: back pain, gout, joint pain, joint swelling, muscle pain, muscle stiffness, neck pain, others Integumetry: denies: bruises, change in color, change in hair/nails, dryness, laceration, lesions, lumps, rash, wounds, others Allergic/Immunocompromised: denies: Difficulty Healing, Frequent Infections, Hives, Itching, others Hematologic/Lymphatic: denies: anemia, blood clots, easy bleeding, easy bruising, swollen glands, others Endocrine: denies: excessive hunger, excessive sweating, excessive thirst, excessive urination, flushing, intolerance to cold, intolerance to heat, unex plained weight gain, unexplained weight loss, others Psychiatric: denies: anxiety, bipolar disorder, depression, hopeless, panic disorder, schizophrenia, sleepless, suicidal, others All Other Systems: Reviewed and Negative Physical Exam General Appearance: No Apparent Distress, Normal HEENT: Normal ENT Inspection, Pharynx Normal, TMs Normal Neck: Full Range of Motion, Non-Tender, Normal, Normal Inspection Respiratory: Chest Non-Tender, Lungs Clear, No Accessory Muscle Use, No Respiratory Distress, Normal Breath Sounds Cardiovascular: No Edema, No JVD, No Murmur, No Gallop, Normal Peripheral Puls es, Regular Rate/Rhythm Breast Exam: Deferred Gastrointestinal: No Organomegaly, Non Tender, No Pulsatile Mass, Normal Bowel Sounds, Soft Genitalia: Deferred Pelvic: Deferred Rectal: Deferred Extremities: No calf tenderness, Normal capillary refill, Normal inspection, Normal range of motion, Non-tender, No pedal edema Musculoskeletal : Apperance: Normal Neurologic: Alert, data warehousing manager II-XII nml as Tested, No Motor Deficits, Normal Affect, Normal Mood, No Sensory Deficits Cerebellar Function: Normal Reflexes: Normal Skin: Dry, Normal Color, Warm Lymphatic: No Adenopathy Was a procedure done? Was a procedure done?: No Differential Diagnosis Urinary Problem (Female): PID, Pyelonephritis, UTI, Other (Hydronephrosis) X-Ray, Labs, Meds, VS Vital Signs Date Time Temp Pulse Resp B/P (MAP) Pulse Ox O2 Delivery O2 Flow Rate FiO2 01/18/25 13:15 97.6 70 16 106/69 98 97.6 Lab Test 01/18/25 13:55 Range/Units Urine Color Colorless Yellow Urine Clarity Turbid H Clear Urine pH 7.0 5.0-9.0 Urine Specific Umbarger 1.025 1.001-1.035 Urine Protein 1+ H Negative Urine Ketones Negative Negative Urine Blood Negative Negative /uL Urine Nitrite Negative Negative Urine Bilirubin Negative Negative Urine Urobilinogen Normal Negative mg/dL Urine Leukocyte Esterase 3+ Negative /uL Urine RBC <1 0 - 4 /hpf Urine Microscopic WBC 226 H 0-5 /HPF Urine Squamous Epithelial Cells Mod <5 /hpf Urine Bacteria Few H None Seen /hpf Urine Mucus Few None Seen Urine Glucose Normal Normal mg/dL Urine Test Negative Negative X-Ray, Labs, Meds, VS Comment Patient arrives alert and oriented, ABC's intact, afebrile, vital signs stable, saturating well in room air Urine test Urinalysis was ordered to rule out UTI or hematuria. Patient was given:_. Tolerated medications with no adverse reaction. Additional MDM Review of External, Non-ED records: External records reviewed. Discussion with independent historian (EMS, family) history obtained from the patient/parents (if applicable) at bedside Chronic conditions affecting care: None Social determinants of health affecting care: None Consideration of admission (observation or admission): I considered escalation of care to admission for this patient, however given the reassuring workup, the patient is safe for outpatient management. Discussion with the Radiology: No Tests considered but not performed: Prescription medication considered but not given: 12 lead EKG interpretation: Time of 1ST Reevaluation: 14:30 Reevaluation 1ST: Unchanged Patient Education/Counseling: Diagnosis, Treatment Family Education/Counseling: No Family Present SEPSIS Sepsis Screen Date sepsis recognized/suspect: Jan 18, 2025 Time Sepsis recognized/suspect: 1315 Recent Procedure: No On Antibiotic Therapy: No Respiratory Rate >20: No Heart Rate >90: No Temp<36 C (96.8 F) or >38.3 C: No SBP <90 or MAP <65 mmHG: No New Acute Mental Status Change: No Is the patient on CPAP, BIPAP,: No Vital Signs Date Time Temp Pulse Resp B/P (MAP) Pulse Ox O2 Delivery O2 Flow Rate FiO2 01/18/25 13:15 97.6 70 16 106/69 98 97.6 Departure 1 Departure Time of Disposition: 15:07 Impression: Primary Impression: UTI (urinary tract infection) Qualified Codes: N30.00 - Acute cystitis without hematuria Disposition: HOME / SELF CARE / HOMELESS Condition: Stable e-Prescriptions Phenazopyridine HCl & Urinary (Uristat Uti Relief Daryl) 95 Mg Daryl 2 TAB PO TID PRN for 3 Days, #12 TAB 0 Refills Prov: RENE MARADIAGA NP 01/18/25 Nitrofurantoin Monohydrate Mac (Macrobid) 100 Mg Cap 100 MG PO BID for 7 Days, #14 CAP 0 Refills Prov: RENE MARADIAGA NP 01/18/25 Discharged With: Self Critical Care Note Critical Care Time?: No Stability Stability form required: No Heart Score Heart Score: Heart Score Response (Comments) Value History N/A 0 EKG N/A 0 Age N/A 0 Risk Factors N/A 0 Troponin N/A 0 Total 0 I personally scribed for RENE MARADIAGA NP ([email or web address]) on 01/18/25 at 14:03. Electronically submitted by Francesca Will ([email or web address]). I personally scribed for RENE MARADIAGA NP ([email or web address]) on 01/18/25 at 14:03. Electronically submitted by Francesca SANCHEZ). RENE MARADIAGA NP Jan 18, 2025 14:03
[2025-01-18 14:52] LABS: Urine Protein, UAD 1+ (Negative)
[2025-01-18] MEDS ORDERED: NITR-87 PO (15:10)
[2025-01-18] MEDS ORDERED: PHEN1PAK PO (15:10)
[2025-01-18 15:22] VITALS: BP 102/76; PULSE 80; RESP 18; TEMP 98.2; O2SAT 99
== END 2025-01-18 15:25 | disposition home or self-care (01) ==
LOC: ER 13:13
DX: N39.0 Urinary tract infection, site not specified (principal); Z79.899 Other long term (current) drug therapy
CPT/HCPCS: 81001; 81025